=== PATIENT | male | born 1980 | race Caucasian/White ===

== ENCOUNTER 2019-04-05 14:43 | Outpatient (REF) | payer BC, SELFPAY ==
[2019-04-05 18:44] LABS: Hemoglobin A1C 5.1 % (4.5-6.2)
[2019-04-05 18:45] LABS: Calculated LDL 99 mg/dL; Cholesterol 173 mg/dL (50-200); HDL Cholesterol 52 mg/dL (40-60); Triglyceride 110 mg/dL (30-150)
== END 2019-04-05 15:03 ==
LOC: NCHCN 14:43
PROVIDERS: PCP Nurse Practitioner Adult Health; Visit Provider Family Medicine
DX: Z00.00 Encounter for general adult medical examination without abnormal findings (principal); Z13.220 Encounter for screening for lipoid disorders; Z13.1 Encounter for screening for diabetes mellitus
CPT/HCPCS: 80061; 83036

== ENCOUNTER 2023-08-13 11:01 | Outpatient (REF) | payer BC, SELFPAY ==
[2023-08-13 16:04] LABS: Calculated LDL 99 mg/dL (<100); Cholesterol 196 mg/dL (<200); HDL Cholesterol 54 mg/dL (40-60); Triglyceride 215 mg/dL (<150)
[2023-08-14 10:01] LABS: HIV-1/2 Ag & Ab Screen Negative (Negative)
[2023-08-14 14:54] LABS: Hepatitis C Ab w Rflx HCV PCR Negative (Negative)
== END 2023-08-13 11:02 | disposition home or self-care (01) ==
LOC: NCHCN 11:01
PROVIDERS: PCP Nurse Practitioner Adult Health; Visit Provider Family Medicine
DX: Z00.00 Encounter for general adult medical examination without abnormal findings (principal); Z13.6 Encounter for screening for cardiovascular disorders; Z11.4 Encounter for screening for human immunodeficiency virus [HIV]; Z11.59 Encounter for screening for other viral diseases
CPT/HCPCS: 80061; 86803; 87389

== ENCOUNTER 2024-05-05 15:58 | Outpatient (REF) | payer BC, SELFPAY ==
--- OUTSIDE RECORDS SUMMARY | 2024-05-05 16:04 | XMS_ITS | Encounter Summary ---
Author Organization [facility] Address [address] [place] [address] Care Team Providers Care Early Childhood Specialist Name Role Phone Unknown, Provider Primary Care Provider Encounter Details Date Type Department Care Team (Late st Contact Info) Description 04/23/2020 Lab Requisition [facility] Pathology & Laboratory Medicine - [facility] [address] [place] [address] Jevon Oakes, [facility] [address] [place] [id number] Encounter for screening for other viral diseases Social History Tobacco Use Types Packs/Day Years Used Date Smoking Tobacco: Never Assessed Interpersonal Safety Answer Date Record ed Physically Hurt Never 04/23/2020 Verbally Threaten Not on file 04/23/2020 Sex and Gender Information Value Date Recorded Sex Assigned at Not on file Gender Identity Not on file Sexual Orientation Not on file documented as of this encounter Plan of Treatment Not on file documented as of this encounter Procedures Procedure Name Priority Date/Time Associated Diagnosis Comments DO NOT ORDER STANDALONE - BROAD COVID TEST Today 04/23/2020 10:00 EDT Encounter for screening for other viral diseases COVID-19 TESTING Today 04/23/2020 10:0 0 EDT Encounter for screening for other viral diseases documented in this encounter Results * DO NOT ORDER STANDALONE - BROAD COVID TEST (04/23/2020 10:00 EDT) COVID-19 rt-PCR Result NEGATIVE Negative 04/24/2020 13:54 EDT [facility] Comment: 2019-novel Coronavirus (2019-nCoV) not detected by the qRT-PCR assay. Consider testing for other respiratory viruses or re-collecting for 2019-nCoV testing. Note: Optimum timing for peak viral levels during infections caused by 2019-nCoV have not been determined. Collection of multiple specimens from the same patient may be necessary to detect the virus. Limitations Positive results are indicative of active infection with SARS-CoV-2 but do not rule out bacterial infection or co-infection with other viruses. The agent detected may not be the definite cause of disease. In addition, detection of viral RNA may not indicate the presence of infectious virus or that SARS-CoV-2 is the causative agent for clinical symptoms. Negative results do not preclude SARS-CoV-2 infection and should not be used as the sole basis for patient management decisions. Negative results must be combined with clinical observations, patient history, and epidemiological information. False negative results may also occur if amplification inhibitors are present in the specimen or if inadequate numbers of organisms are present in the specimen. Optimum specimen types and timing for peak viral levels during infections caused by SARS-CoV-2 have not been fully determined. Collection of multiple specimens (types and time points) from the same patient may be necessary to detect the virus. The test was validated for use with upper respiratory specimens obtained via nasopharyngeal or oropharyngeal swabs in VTM, UTM, M4, M5, M6, saline, and MTM media. The performance of this test has not been established for other specimens. Specimens collected using other FDA recommended Specimen Collection Materials listed in the FDA COVID-19 Diagnostic Technologies communication (October 13, 2019) are processed with the caveat that they were not all validated for use with this test and the result must be interpreted in this context. Furthermore, a false negative results may occur if a specimen is improperly collected, transported or handled. If the virus mutates in the RT-PCR target region, SARS-CoV-2 may not be detected or may be detected less predictably. Inhibitors or other types of interference may produce a false negative result. An interference study evaluating the effect of common cold medications was not performed. This test is not FDA-cleared but its performance characteristics were established by our CLIA-certified, CAP-accredited, high complexity laboratory in accordance with CLIA regulations, College of [employer] (CAP) guidelines (Oct 06, 2019), and FDA guidance (Sep 17, 2019). This test is only for use under the Food and Drug Administration's Emergency Use Authorization. Swab NASAL / Unknown 04/23/2020 1 0:00 EDT 04/23/2020 23:08 EDT Jevon Oakes [facility] MICROBIOL OGY - GENERAL ORDERABLES [place], [place] * COVID-19 TESTING (04/23/2020 10:00 EDT) [facility] COVID-19 rt-PCR Result NEGATIVE Negative 04/24/2020 14:51 EDT [facility] Comment: 2019-novel Coronavirus (2019-nCoV) not detected by the qRT-PCR assay. Consider testing for other respiratory viruses or re-collecting for 2019-nCoV testing. Note: Optimum timing for peak viral levels during infections caused by 2019-nCoV have not been determined. Collection of multiple specimens from the same patient may be necessary to detect the virus. Limitations Positive results are indicative of active infection with SARS-CoV-2 but do not rule out bacterial infection or co-infection with other viruses. The agent detected may not be the definite cause of disease. In addition, detection of viral RNA may not indicate the presence of infectious virus or that SARS-CoV-2 is the causative agent for clinical symptoms. Negative results do not preclude SARS-CoV-2 infection and should not be used as the sole basis for patient management decisions. Negative results must be combined with clinical observations, patient history, and epidemiological information. False negative results may also occur if amplification inhibitors are present in the specimen or if inadequate numbers of organisms are present in the specimen. Optimum specimen types and timing for peak viral levels during infections caused by SARS-CoV-2 have not been fully determined. Collection of multiple specimens (types and time points) from the same patient may be necessary to detect the virus. The test was validated for use with upper respiratory specimens obtained via nasopharyngeal or oropharyngeal swabs in VTM, UTM, M4, M5, M6, saline, and MTM media. The performance of this test has not been established for other specimens. Specimens collected using other FDA recommended Specimen Collection Materials listed in the FDA COVID-19 [employer] communication (October 13, 2019) are processed with the caveat that they were not all validated for use with this test and the result must be interpreted in this context. Furthermore, a false negative results may occur if a specimen is improperly collected, transported or handled. If the virus mutates in the RT-PCR target region, SARS-CoV-2 may not be detected or may be detected less predictably. Inhibitors or other types of interference may produce a false negative result. An interference study evaluating the effect of common cold medications was not performed. This test is not FDA-cleared but its performance characteristics were established by our CLIA-certified, CAP-accredited, high complexity laboratory in accordance with CLIA regulations, College of [place] Pathologists (CAP) guidelines (Oct 06, 2019), and FDA guidance (Sep 17, 2019). This test is only for use under the Food and Drug Administration's Emergency Use Authorization. Performing Lab [facility] 04/24/2020 14:51 EDT [facility] Swab NASAL / Unknown 04/23/2020 1 0:00 EDT 04/23/2020 23:08 EDT Analesa Isabel Muir [facility] MICROBIOL OGY - GENERAL ORDERABLES [facility] [address] [place] [address] [facility] [place] documented in this encounter Visit Diagnoses Diagnosis Encounter for screening for other viral diseases documented in this encounter Care Teams Early Childhood Specialist Relationship Specialty Start Date End Date Unknown, Provider, PCP - General 07/20/19 documented as of this encounter
--- OUTSIDE RECORDS SUMMARY | 2024-05-05 16:04 | XMS_ITS | Patient Health Record ---
Author Organization [facility] Address [address] [place] [address] Care Team Providers Care Institutional Aide Name Role Phone PCP, Does not have a Primary Care Provider Unava ilable Allergies No Known Allergies Reason For Referral No Information Plan Of Treatment No Information Insurance Providers Payer Name Payer Address Payer Phone Subscriber Number Group Number Insured Name Patient Relationship to Insured Coverage Start Date Coverage End Date [employer] [address] [place] [address] [id number] Self - patient is the insured 0
--- OUTSIDE RECORDS SUMMARY | 2024-05-05 16:04 | XMS_ITS | Encounter Summary ---
Author Organization [facility] Address [address] [place] [address] Care Team Providers Care Core Inspector Name Role Phone Unknown, Provider Primary Care Provider Encounter Details Date Type Department Care Team (Late st Contact Info) Description 05/14/2020 Lab Requisition [facility] Pathology & Laboratory Medicine - [facility] [address] [place] [address] Jevon Oakes, [address] [phone] Contact with and (suspected) exposure to other viral communicable diseases Social History Tobacco Use Types Packs/Day [...] Procedure Name Priority Date/Time Associated Diagnosis Comments COVID-19 TIPTON TEST Today 05/14/2020 9: 00 EDT Contact with and (suspected) exposure to other viral communicable diseases documented in this encounter Results * COVID-19 TIPTON TEST (05/14/2020 9:00 EDT) SARS CoV-2 Specimen Source Nasal 05/18/2020 15:24 EDT [facility] Patient Race Unknown 05/18/2020 15:24 EDT [facility] Patient Ethnicity Unknown 05/18/2020 15:24 EDT [facility] SARS-CoV-2 RNA Result Undetected Undetected 05/18/2020 15:24 EDT [facility] Comment: SARS-CoV-2 RNA absent. This result does not rule out COVID-19 in the patient, as the sensitivity of the test depends on the timing of the specimen collection and the quality of the specimen. Result should be correlated with patient's history and clinical presentation. Method Summary SEE NOTE 05/18/2020 15:24 EDT [facility] Comment: PKELM- This test uses the Glowpoint New Coronavirus Nucleic Acid Detection Kit ([employer] and is performed on the Pixplit instrument and Applied Matchbin 7500 Fast Real-Time PCR System. It has received Emergency Use Authorization (EUA) by the U.S. Food and Drug Administration, and is modified from the rodent exterminator's instructions with a bridging study. Performance characteristics were verified by [facility] in a manner consistent with CLIA requirements. Fact sheets for this Emergency Use Authorization (EUA) can be found at the following links: https://www.fda.gov/media/804293/download for Healthcare Providers https://www.fda.gov/media/498456/download for Patients Test Performed by: [facility] [place] [address] Steam Table Worker: Rogelio Laura M.D. Ph.D.; CLIA# [id number] Swab NASAL / Unknown Swab / Unknown 05/14/2020 9:00 EDT 05/14/2020 21:23 EDT Analesa Maren Oakes [facility] MICROBIOL OGY - GENERAL ORDERABLES [facility] [address] [place] [address] documented in this encounter Visit Diagnoses Diagnosis Contact with and (suspected) exposure to other viral communicable diseases documented in this encounter Care Teams Core Inspector Relationship Specialty Start Date End Date Unknown, Provider, PCP - General 07/20/19 documented as of this encounter
--- OUTSIDE RECORDS SUMMARY | 2024-05-05 16:04 | XMS_ITS | Encounter Summary ---
Author Organization [facility] Address [address] [place] [address] Care Team Providers Care Tile Helper Name Role Phone Unknown, Provider Primary Care Provider Encounter Details Date Type Department Care Team (Late st Contact Info) Description 08/13/2023 Lab Requisition [facility] Pathology & Laboratory Medicine - [facility] [address] [place] [address] Outr Resulting Lab, Provider Social History Tobacco Use Types Packs/Day Years [...] Procedure Name Priority Date/Time Associated Diagnosis Comments HIV 1/2 ANTIGEN AND ANTIBODY, 4TH GENERATION Routine 08/13/2023 9:20 EST documented in this encounter Results * HIV 1/2 ANTIGEN AND ANTIBODY, 4TH GENERATION (08/13/2023 9:20 EST) HIV 1 and 2 Antibody/p24 Antigen, 4th Generation Negative Negative 08/14/2023 9:56 EST [facility] Comment:If acute HIV-1 infec tion is suspected in a high risk patient, submit plasma specimen for HIV-1 RNA quantitation test. Blood VENOUS BLOOD / Unknown 08/13/2023 9:20 EST 08/13/2023 21:18 EST Narrative [facility] - 08/14/2023 9:56 EST Fourth Generation assay performed on the Siemens Centaur XPT. Provider Outr Resulting Lab IMMUNOLOGY A ND SEROLOGY ORDERABLES Performing Organization Address City/State/[facility] Co de Phone Number [facility] [address] [place] [address] documented in this encounter Visit Diagnoses Not on filedocumented in this encounter Care Teams Tile Helper Relationship Specialty Start Date End Date Unknown, Provider, PCP - General 07/20/19 documented as of this encounter
--- OUTSIDE RECORDS SUMMARY | 2024-05-05 16:04 | XMS_ITS | Encounter Summary ---
Author Organization [facility] Address [address] [place] [address] Care Team Providers Care Elementary Assistant Teacher Name Role Phone Unknown, Provider Primary Care Provider Encounter Details Date Type Department Care Team (Late st Contact Info) Description 08/13/[address] [facility] Pathology & Laboratory Medicine - [address] [address] Outr Resulting Lab, Provider Social History Tobacco [...] Procedure Name Priority Date/Time Associated Diagnosis Comments HEPATITIS C AB W REFLEX TO HCV RNA BY PCR Routine 08/13/2023 9:20 EST documented in this encounter Results * HEPATITIS C AB W REFLEX TO HCV RNA BY PCR (08/13/2023 9:20 EST) Hep C Antibody Negative Negative 08/14/2023 14:49 EST [facility] Blood VENOUS BLOOD / Unknown 08/13/2023 9:20 EST 08/13/2023 21:18 EST Provider Outr Resulting Lab CHEMISTRY & BLOOD GAS ORDERABLES [facility] [address] [place] [id number] documented in this encounter Visit Diagnoses Not on filedocumented in this encounter Care Teams Elementary Assistant Teacher Relationship Specialty Start Date End Date Unknown, Provider, PCP - General 07/20/19 documented as of this encounter
--- OUTSIDE RECORDS SUMMARY | 2024-05-05 16:04 | XMS_ITS | Clinical Summary ---
Author Organization [facility] Address [address] [place] [address] Care Team Providers Care Food Dehydrator Operator Name Role Phone Unknown, Provider Primary Care Provider Social History Tobacco Use Types Packs/Day Years Used Date Smoking Tobacco: Never Assessed Interpersonal Safety Answer Date Record ed Physically Hurt Never 04/23/2020 Verbally Threaten Not on file 04/23/2020 Sex and Gender Information Value Date Recorded Sex Assigned at Not on file Gender Identity Not on file Sexual Orientation Not on file Plan of Treatment Health Maintenance Due Date Last Done Comments Hepatitis B Vaccine (1 of 3 - 19+ 3-dose series) 01/27 COVID-19 Vaccine (2022- season) 2023 Hepatitis C Screen Completed 08/13/2023 Procedures Procedure Name Priority Date/Time Associated Diagnosis Comments HEPATITIS C AB W REFLEX TO HCV RNA BY PCR Routine 08/13/2023 9:20 EST from Last 3 Months or Most Recently Relevant to Health Maintenance Results * HEPATITIS C AB W REFLEX TO HCV RNA BY PCR (08/13/2023 9:20 EST) Hep C Antibody Negative Negative 08/14/2023 14:49 EST [facility] Blood VENOUS BLOOD / Unknown 08/13/2023 9:20 EST 08/13/2023 21:18 EST Provider Outr Resulting Lab CHEMISTRY & BLOOD GAS ORDERABLES [facility] [address] [place] [address] from Last 3 Months or Most Recently Relevant to Health Maintenance Care Teams Food Dehydrator Operator Relationship Specialty Start Date End Date Unknown, Provider, PCP - General 07/20/19
--- OUTSIDE RECORDS SUMMARY | 2024-05-05 16:04 | XMS_ITS | Referral Summary ---
Author Organization [facility] Address [address] [place] [address] Care Team Providers Care Quality Control Tech Name Role Phone Unknown, Provider Primary Care Provider Social History Tobacco Use Types Packs/Day Years Used Date Smoking Tobacco: Never Assessed Interpersonal Safety Answer Date Record ed Physically Hurt Never 04/23/2020 Verbally Threaten Not on file 04/23/2020 Sex and Gender Information Value Date Recorded Sex Assigned at Not on file Gender Identity Not on file Sexual Orientation Not on file Plan of Treatment Not on file Procedures Procedure Name Priority Date/Time Associated Diagnosis Comments HEPATITIS C AB W REFLEX TO HCV RNA BY PCR Routine 08/13/2023 9:20 EST from Last 3 Months or Most Recently Relevant to Health Maintenance Results * HEPATITIS C AB W REFLEX TO HCV RNA BY PCR (08/13/2023 9:20 EST) Hep C Antibody Negative Negative 08/14/2023 14:49 EST [facility] Blood VENOUS BLOOD / Unknown 08/13/2023 9:20 EST 08/13/2023 21:18 EST Provider Outr Resulting Lab CHEMISTRY & BLOOD GAS ORDERABLES [facility] [address] [place] [address] from Last 3 Months or Most Recently Relevant to Health Maintenance Care Teams Quality Control Tech Relationship Specialty Start Date End Date Unknown, Provider, PCP - General 07/20/19
[2024-05-05 17:37] LABS: ALT 45 U/L (16-63); AST 32 U/L (15-37); Albumin 4.5 g/dL (3.4-5.0); Alkaline Phosphatase 88 U/L (46-116); Anion Gap 11.3 mmol/L (3-11); BUN 8 mg/dL (7-18); Bilirubin, Total 1.05 mg/dL (0.2-1.0); CO2 26.7 mmol/L (21.0-32.0); Calcium 9.5 mg/dL (8.5-10.1); Chloride 104 mmol/L (98-107); Estimated GFR 95.18 (mL/min/1.73m2); Glucose 101 mg/dL (74-106); Potassium 4.6 mmol/L (3.5-5.1); Sodium 142 mmol/L (136-145); Total Protein 7.7 g/dL (6.4-8.2)
[2024-05-06 09:41] LABS: PSA, Screening 0.4 ng/mL (<=2.5)
== END 2024-05-05 15:59 | disposition home or self-care (01) ==
LOC: NCHCN 15:58
PROVIDERS: PCP Nurse Practitioner Adult Health; Visit Provider Student in an Organized Health Care Education/Training Program
DX: B35.1 Tinea unguium (principal); Z80.42 Family history of malignant neoplasm of prostate
CPT/HCPCS: 80053; 84153

== ENCOUNTER 2024-11-16 17:02 | Outpatient (REF) | payer BC, SELFPAY ==
[2024-11-16 16:47] LABS: ALT 38 U/L (16-63); AST 24 U/L (15-37); Albumin 4.2 g/dL (3.4-5.0); Alkaline Phosphatase 78 U/L (46-116); Anion Gap 9.8 mmol/L (3-11); BUN 12 mg/dL (7-18); Bilirubin, Total 0.7 mg/dL (0.2-1.0); CO2 27.2 mmol/L (21.0-32.0); Calcium 9.1 mg/dL (8.5-10.1); Chloride 105 mmol/L (98-107); Estimated GFR 95.18 (mL/min/1.73m2); Glucose 80 mg/dL (74-106); Potassium 4.7 mmol/L (3.5-5.1); Sodium 142 mmol/L (136-145); Total Protein 7.1 g/dL (6.4-8.2)
== END 2024-11-16 17:03 | disposition home or self-care (01) ==
LOC: NCHCN 17:02
PROVIDERS: Visit Provider Student in an Organized Health Care Education/Training Program
DX: B35.1 Tinea unguium (principal)
CPT/HCPCS: 80053

== ENCOUNTER 2025-03-15 14:57 | Outpatient (CLI) | payer BC, SELFPAY ==
[2025-03-15 11:42] LABS: Abs Immature Grans 0.03 10^3/uL (0.0-0.06); HCT 43.6 % (40.0-50.0); HGB 15.0 g/dL (13.5-17.5); Immature Grans % 0.4 %; MCH 28.1 pg (27.0-33.0); MCHC 34.4 % (32.0-36.0); MCV 82 fL (80-95); MPV 10.0 fL (8.0-11.0); Platelet Count 274 10^3/uL (130-400); RBC 5.34 10^6/uL (4.36-5.78); RDW 11.9 % (11.8-14.1); RDW-SD 35.4 fL; WBC 7.15 10^3/uL (4.4-10.8)
[2025-03-15 12:07] LABS: D-Dimer 264 ng/mlFEU (<500)
[2025-03-16 10:10] LABS: Lyme Ab w Rflx to Lyme Confirm Negative (Negative)
[2025-03-17 21:20] LABS: B. miyamotoi PCR Negative (Negative); Babesia divergens/MO-1 Negative (Negative); Ehrlichia muris eauclairensis Negative (Negative)
== END 2025-03-15 14:58 | disposition home or self-care (01) ==
LOC: LBO 14:57
PROVIDERS: Visit Provider Physician Assistant
DX: M79.669 Pain in unspecified lower leg (principal)
CPT/HCPCS: 36415; 87798; 85025; 85379; 86618